=== PATIENT | female | born 1990 | race American Indian/Alaskan Native ===

== ENCOUNTER → 2017-01-17 | Outpatient (CLI) | payer MEDICAID ==
[~2017-01-17] MED LIST: BACLOFEN; DIAZEPAM PO; LIORESAL 1010 MG/TAB PO; VALIUM 5MG T5 MG/TAB PO; ZITHROMAX Z PA250 MG PO; phenobarbital PO
== END ==
LOC: COL.CARD 13:00
DX: G40.89 Other seizures (principal); G80.9 Cerebral palsy, unspecified; G83.0 Diplegia of upper limbs

== ENCOUNTER → 2017-12-25 | Outpatient (CLI) | payer MEDICARE, MEDICAID ==
[2017-12-25 12:07] LABS: MUCOUS Present /lpf; PH 5 (5-8); URINE APPEARANCE Hazy; URINE BACTERIA None Seen /hpf; URINE BILIRUBIN Negative (NEGATIVE); URINE BLOOD 1+ (NEGATIVE); URINE CALCIUM OXALATE CRYSTAL Present /hpf; URINE COLOR Yellow; URINE GLUCOSE Negative (NEGATIVE); URINE KETONE Negative (NEGATIVE); URINE LEUKOCYTE ESTERASE Negative (NEGATIVE); URINE NITRATE Negative (NEGATIVE); URINE PROTEIN(semi-quant) Negative (NEGATIVE); URINE RBC 20-50 /hpf; URINE UROBILINOGEN Negative (NEGATIVE)
[2017-12-25 13:06] LABS: COLLECTION METHOD CLEAN CATCH
== END ==
LOC: COL.LAB 11:24
PROVIDERS: Internal Medicine
DX: R31.9 Hematuria, unspecified (principal)

== ENCOUNTER → 2018-04-10 | Outpatient (REF) ==
[2018-04-10 09:25] LABS: MUCOUS Present /lpf; PH 6 (5-8); URINE APPEARANCE Turbid; URINE BACTERIA Rare /hpf; URINE BILIRUBIN Negative (NEGATIVE); URINE BLOOD 2+ (NEGATIVE); URINE CALCIUM OXALATE CRYSTAL Present /hpf; URINE COLOR Amber; URINE GLUCOSE Negative (NEGATIVE); URINE KETONE Negative (NEGATIVE); URINE LEUKOCYTE ESTERASE Trace (NEGATIVE); URINE NITRATE Negative (NEGATIVE); URINE PROTEIN(semi-quant) 2+ (NEGATIVE); URINE UROBILINOGEN Negative (NEGATIVE)
[2018-04-10 09:28] LABS: COLLECTION METHOD CLEAN CATCH
== END ==
LOC: ZLAB.STJ 09:15
PROVIDERS: Internal Medicine
DX: Z01.89 Encounter for other specified special examinations (principal)

== ENCOUNTER → 2018-08-28 | Outpatient (CLI) | payer MEDICAID | LOC: ZLAB.STJ 15:37 | DX: E87.5 Hyperkalemia (principal) ==

== ENCOUNTER → 2018-08-28 | Outpatient (CLI) | payer MEDICAID ==
[2018-08-28 11:45] LABS: BASO % 0.7 % (0.0-2.0); EOS # 0.1 (0.0-0.7); EOS % 1.5 % (0-4.0); GRAN # 1.7 (1.4-6.5); GRAN % 36.6 % (42.2-75.2); HEMATOCRIT 40.1 % (37.0-47.0); HEMOGLOBIN 12.7 g/dl (12.5-16.0); LYMPH # 2.4 (1.2-3.4); MEAN CELL VOLUME 95 fl (80.0-100.0); MEAN CORPUSCULAR HEMOGLOBIN 30 pg (27.0-31.0); MEAN CORPUSCULAR HGB CONC 32 g/dl (33.0-37.0); MEAN PLATELET VOLUME 10.7 fl (7.4-10.4); MONO # 0.4 (0.1-0.6); MONO % 9.2 % (1.7-9.3); PLATELET COUNT 221 K/mm3 (130-400); RED BLOOD COUNT 4.22 M/mm3 (4.10-5.30); REDCELL DISTRIBUTION WIDTH-CV 11.6 % (11.5-14.5)
[2018-08-28 12:12] LABS: BILIRUBIN,TOTAL 0.3 mg/dL (0.0-1.0); CALCIUM 9.5 mg/dL (8.4-10.2); CHOLESTEROL RISK RATIO 3.9; CREATININE, serum 0.69 mg/dL (0.52-1.25)
[2018-08-28 12:42] LABS: THYROID STIMULATING HORMONE 1.59 uIU/mL (0.465-4.680)
[2018-08-28 12:52] LABS: POTASSIUM 5.8 mmol/L (3.4-5.0)
== END ==
LOC: ZLAB.STJ 09:34
PROVIDERS: Internal Medicine
DX: G80.9 Cerebral palsy, unspecified (principal); E87.5 Hyperkalemia

== ENCOUNTER → 2018-09-11 | Outpatient (CLI) | payer MEDICAID ==
[2018-09-12 07:45] LABS: CALCIUM 9.9 mg/dL (8.4-10.2); CREATININE, serum 0.72 mg/dL (0.52-1.25)
[2018-09-12 07:50] LABS: POTASSIUM 5.9 mmol/L (3.4-5.0)
== END ==
LOC: ZLAB.STJ 10:22
PROVIDERS: Internal Medicine
DX: G80.9 Cerebral palsy, unspecified (principal)

== ENCOUNTER → 2018-09-16 | Outpatient (CLI) | payer MEDICAID ==
[2018-09-16 15:45] LABS: BASO % 0.6 % (0.0-2.0); EOS # 0.1 (0.0-0.7); EOS % 1.5 % (0-4.0); GRAN # 2.8 (1.4-6.5); GRAN % 51.3 % (42.2-75.2); HEMATOCRIT 39.2 % (37.0-47.0); HEMOGLOBIN 12.7 g/dl (12.5-16.0); LYMPH % 37.2 % (20.0-51.0); MEAN CELL VOLUME 93 fl (80.0-100.0); MEAN CORPUSCULAR HEMOGLOBIN 30 pg (27.0-31.0); MEAN CORPUSCULAR HGB CONC 32 g/dl (33.0-37.0); MEAN PLATELET VOLUME 11.4 fl (7.4-10.4); MONO # 0.5 (0.1-0.6); MONO % 9.2 % (1.7-9.3); PLATELET COUNT 212 K/mm3 (130-400); RED BLOOD COUNT 4.24 M/mm3 (4.10-5.30); REDCELL DISTRIBUTION WIDTH-CV 11.5 % (11.5-14.5)
[2018-09-16 15:55] LABS: ALBUMIN 4.1 gm/dL (3.5-5.0); BILIRUBIN,TOTAL 0.3 mg/dL (0.0-1.0); CALCIUM 9.6 mg/dL (8.4-10.2); CREATININE, serum 0.74 mg/dL (0.52-1.25); POTASSIUM 4.9 mmol/L (3.4-5.0); TOTAL PROTEIN 7.3 gm/dL (6.4-8.2)
[2018-09-16 16:13] LABS: VALPROIC ACID (DEPAKENE) 37.4 ug/mL (50.0-100.0)
== END ==
LOC: ZLAB.STJ 15:11
PROVIDERS: Psychiatry & Neurology Neurology
DX: G40.309 Generalized idiopathic epilepsy and epileptic syndromes, not intractable, without status epilepticus (principal)

== ENCOUNTER 2018-12-15 22:57 | Emergency (ER) | payer MEDICARE, MEDICAID ==
[~2018-12-15] VITALS: Ht 167.6 cm; Wt 59.1 kg
[2018-12-15 23:04] VITALS: TEMP 98.4
[2018-12-15] MEDS ORDERED: VITAMINS CHILDR1 CT1 PO (23:16)
[2018-12-15] MEDS ORDERED: PROAIR HFA0.09 MG/AC IH (23:17)
[2018-12-15] MEDS ORDERED: COLACE 100100 MG/CAP PO (23:17)
[2018-12-16 00:18] LABS: BASO % 0.6 % (0.0-2.0); EOS # 0.2 (0.0-0.7); EOS % 3.6 % (0-4.0); GRAN % 41.3 % (42.2-75.2); HEMOGLOBIN 11.8 g/dl (12.5-16.0); LYMPH # 2.2 (1.2-3.4); LYMPH % 45.9 % (20.0-51.0); MEAN CELL VOLUME 94 fl (80.0-100.0); MEAN CORPUSCULAR HEMOGLOBIN 31 pg (27.0-31.0); MEAN CORPUSCULAR HGB CONC 33 g/dl (33.0-37.0); MEAN PLATELET VOLUME 11.2 fl (7.4-10.4); MONO # 0.4 (0.1-0.6); MONO % 8.4 % (1.7-9.3); PLATELET COUNT 146 K/mm3 (130-400); RED BLOOD COUNT 3.84 M/mm3 (4.10-5.30); REDCELL DISTRIBUTION WIDTH-CV 12.9 % (11.5-14.5)
[2018-12-16 00:21] LABS: HEMATOCRIT 36.2 % (37.0-47.0)
[2018-12-16 00:29] LABS: ALBUMIN 3.7 gm/dL (3.5-5.0); BILIRUBIN,TOTAL 0.3 mg/dL (0.0-1.0); CALCIUM 9.5 mg/dL (8.4-10.2); CREATININE, serum 0.74 (0.52-1.25); POTASSIUM 4.7 mmol/L (3.4-5.0); TOTAL PROTEIN 6.9 gm/dL (6.4-8.2)
[2018-12-16 04:27] VITALS: BP 105/79; PULSE 76
== END 2018-12-16 04:27 | disposition home or self-care (01) ==
LOC: COL.ER 22:57
PROVIDERS: Physician Assistant
DX: S00.93XA Contusion of unspecified part of head, initial encounter (principal); S10.93XA Contusion of unspecified part of neck, initial encounter; W06.XXXA Fall from bed, initial encounter; Y92.129 Unspecified place in nursing home as the place of occurrence of the external cause
CPT/HCPCS: J2250

== ENCOUNTER 2019-01-17 18:08 | Emergency (ER) | payer MEDICAID ==
[2019-01-17 18:21] VITALS: TEMP 97.8
[2019-01-17 19:07] LABS: BASO % 0.5 % (0.0-2.0); EOS % 0.4 % (0-4.0); GRAN # 2.4 (1.4-6.5); GRAN % 43.3 % (42.2-75.2); HEMATOCRIT 39.3 % (37.0-47.0); HEMOGLOBIN 12.6 g/dl (12.5-16.0); LYMPH # 2.4 (1.2-3.4); LYMPH % 43.3 % (20.0-51.0); MEAN CELL VOLUME 95 fl (80.0-100.0); MEAN CORPUSCULAR HEMOGLOBIN 30 pg (27.0-31.0); MEAN CORPUSCULAR HGB CONC 32 g/dl (33.0-37.0); MEAN PLATELET VOLUME 11.5 fl (7.4-10.4); MONO # 0.7 (0.1-0.6); MONO % 12.1 % (1.7-9.3); RED BLOOD COUNT 4.14 M/mm3 (4.10-5.30); REDCELL DISTRIBUTION WIDTH-CV 13.7 % (11.5-14.5); RETIC # 0.07 M/mm3 (0.02-0.16); RETIC % 1.8 % (0.5-3.52)
[2019-01-17 19:11] LABS: PLATELET COUNT 130 K/mm3 (130-400)
[2019-01-17 19:45] LABS: ERYTHROCYTE SEDIMENTATION RATE 1 mm/hr (0-20)
[2019-01-17 19:50] LABS: ALBUMIN 3.7 gm/dL (3.5-5.0); BILIRUBIN,TOTAL 0.7 mg/dL (0.0-1.0); CALCIUM 9.5 mg/dL (8.4-10.2); CREATININE, serum 0.89 (0.52-1.25); TOTAL PROTEIN 7.1 gm/dL (6.4-8.2)
[2019-01-17 20:45] VITALS: BP 121/68; PULSE 92
== END 2019-01-17 20:50 | disposition home or self-care (01) ==
LOC: COL.ER 18:08
PROVIDERS: Family Medicine
DX: G83.9 Paralytic syndrome, unspecified (principal)

== ENCOUNTER → 2019-01-17 | Outpatient (CLI) | payer MEDICAID ==
[~2019-01-17] MED LIST changes: +COLACE 100100 MG/CAP PO; +PROAIR HFA0.09 MG/AC IH; +VITAMINS CHILDR1 CT1 PO
[2019-01-17 16:58] LABS: HEMATOCRIT 41.9 % (37.0-47.0); HEMOGLOBIN 13.7 g/dl (12.5-16.0); MEAN CELL VOLUME 93 fl (80.0-100.0); MEAN CORPUSCULAR HEMOGLOBIN 30 pg (27.0-31.0); MEAN CORPUSCULAR HGB CONC 33 g/dl (33.0-37.0); REDCELL DISTRIBUTION WIDTH-CV 13.6 % (11.5-14.5)
[2019-01-17 17:11] LABS: ALBUMIN 3.7 gm/dL (3.5-5.0); BILIRUBIN,TOTAL 0.9 mg/dL (0.0-1.0); CALCIUM 9.2 mg/dL (8.4-10.2); CREATININE, serum 0.81 (0.52-1.25); POTASSIUM 5.3 mmol/L (3.4-5.0); TOTAL PROTEIN 7.3 gm/dL (6.4-8.2)
[2019-01-17 17:23] LABS: VALPROIC ACID (DEPAKENE) 72.1 ug/mL (50.0-100.0)
[2019-01-17 17:33] LABS: PLATELET COUNT 1 K/mm3 (130-400)
[2019-01-17 17:47] LABS: LYMPHOCYTE 67 % (20.0-51.0); NEUTROPHILS 22 % (42.0-75.2); PLATELET ESTIMATE DECREASED (NORMAL)
== END ==
LOC: COL.LAB 16:32
PROVIDERS: Internal Medicine
DX: G40.309 Generalized idiopathic epilepsy and epileptic syndromes, not intractable, without status epilepticus (principal); D69.6 Thrombocytopenia, unspecified; R74.8 Abnormal levels of other serum enzymes

== ENCOUNTER → 2019-01-18 | Outpatient (CLI) | payer MEDICAID ==
[2019-01-18 15:59] LABS: BASO % 0.6 % (0.0-2.0); EOS % 0.8 % (0-4.0); GRAN # 2.1 (1.4-6.5); GRAN % 39.3 % (42.2-75.2); HEMATOCRIT 37.6 % (37.0-47.0); LYMPH # 2.3 (1.2-3.4); LYMPH % 43.5 % (20.0-51.0); MEAN CELL VOLUME 95 fl (80.0-100.0); MEAN CORPUSCULAR HEMOGLOBIN 30 pg (27.0-31.0); MEAN CORPUSCULAR HGB CONC 32 g/dl (33.0-37.0); MEAN PLATELET VOLUME 11.2 fl (7.4-10.4); MONO # 0.8 (0.1-0.6); MONO % 15.4 % (1.7-9.3); PLATELET COUNT 115 K/mm3 (130-400); RED BLOOD COUNT 3.96 M/mm3 (4.10-5.30); REDCELL DISTRIBUTION WIDTH-CV 13.3 % (11.5-14.5)
== END ==
LOC: COL.LAB 15:13
PROVIDERS: Internal Medicine
DX: D69.6 Thrombocytopenia, unspecified (principal)

== ENCOUNTER → 2019-02-05 | Outpatient (CLI) | payer MEDICAID | LOC: COL.CARD 12:52 | DX: G40.909 Epilepsy, unspecified, not intractable, without status epilepticus (principal) ==

== ENCOUNTER 2019-04-30 20:54 | Emergency (ER) | payer MEDICAID ==
[2019-04-30 21:03] VITALS: BP 101/86
[2019-04-30] MEDS ORDERED: DEPAKOTE ER 50500 MG PO (21:25)
[2019-04-30] MEDS ORDERED: COLACE 100100 MG/CAP PO (21:29)
[2019-04-30] MEDS ORDERED: MAGNESIUM ELEM300 MG PO (21:31)
[2019-04-30] MEDS ORDERED: MOTRIN 200200 MG/TAB PO (21:31)
[2019-04-30] MEDS ORDERED: TYLENOL 325MG325 MG PO (21:31)
[2019-04-30 22:01] LABS: BASO % 0.7 % (0.0-2.0); EOS # 0.2 (0.0-0.7); EOS % 4.1 % (0-4.0); GRAN # 2.1 (1.4-6.5); GRAN % 39.3 % (42.2-75.2); HEMATOCRIT 41.4 % (37.0-47.0); HEMOGLOBIN 13.3 g/dl (12.5-16.0); LYMPH # 2.3 (1.2-3.4); LYMPH % 41.9 % (20.0-51.0); MEAN CELL VOLUME 101 fl (80.0-100.0); MEAN CORPUSCULAR HEMOGLOBIN 32 pg (27.0-31.0); MEAN CORPUSCULAR HGB CONC 32 g/dl (33.0-37.0); MEAN PLATELET VOLUME 11.3 fl (7.4-10.4); MONO # 0.7 (0.1-0.6); MONO % 13.6 % (1.7-9.3); PLATELET COUNT 115 K/mm3 (130-400); RED BLOOD COUNT 4.12 M/mm3 (4.10-5.30)
[2019-04-30 22:17] LABS: ALANINE AMINOTRANSFERASE 21 U/L (9-52); ALBUMIN 3.9 gm/dL (3.5-5.0); ALKALINE PHOSPHATASE 133 U/L (50-136); ANION GAP 8 mmol/L (7-16); AST,SGOT 46 U/L (15-37); BILIRUBIN,TOTAL 0.3 mg/dL (0.0-1.0); BLOOD UREA NITROGEN 25 mg/dL (7-17); C-REACTIVE PROTEIN < 0.5 mg/dL (0.0-0.9); CALCIUM 9.4 mg/dL (8.4-10.2); CARBON DIOXIDE 31 mmol/L (22-30); CHLORIDE 101 mmol/L (98-107); CREATININE, serum 0.89 (0.52-1.25); GLUCOSE 105 mg/dL (74-106); LIPASE 172 U/L (23-300); POTASSIUM 5.7 mmol/L (3.4-5.0); SODIUM 139 mmol/L (137-145); TOTAL PROTEIN 7.3 gm/dL (6.4-8.2)
[2019-04-30 23:15] LABS: COLLECTION METHOD CATHETER
[2019-04-30 23:26] LABS: MUCOUS Present /lpf; PH 7 (5-8); SQUAMOUS EPITHELIAL 0-2 /hpf; URINE APPEARANCE Clear; URINE BACTERIA None Seen /hpf; URINE BILIRUBIN Negative (NEGATIVE); URINE BLOOD Negative (NEGATIVE); URINE COLOR Yellow; URINE GLUCOSE Negative (NEGATIVE); URINE KETONE Negative (NEGATIVE); URINE LEUKOCYTE ESTERASE Negative (NEGATIVE); URINE NITRATE Negative (NEGATIVE); URINE PROTEIN(semi-quant) Negative (NEGATIVE); URINE RBC 0-2 /hpf; URINE UROBILINOGEN Negative (NEGATIVE)
[2019-04-30 23:30] VITALS: PULSE 94; TEMP 97.4
== END 2019-04-30 23:55 | disposition home or self-care (01) ==
LOC: COL.ER 20:54
PROVIDERS: Emergency Medicine
DX: R19.7 Diarrhea, unspecified (principal); E87.5 Hyperkalemia; G40.909 Epilepsy, unspecified, not intractable, without status epilepticus
CPT/HCPCS: J7030

== ENCOUNTER 2019-06-02 13:00 | Outpatient (RCR) | payer MEDICAID ==
[~2019-06-02 13:00] MED LIST changes: +DEPAKOTE ER 50500 MG PO; +MAGNESIUM ELEM300 MG PO; +MOTRIN 200200 MG/TAB PO; +TYLENOL 325MG325 MG PO
== END 2019-07-01 | disposition home or self-care (01) ==
LOC: WSST
DX: G80.9 Cerebral palsy, unspecified (principal)

== ENCOUNTER 2019-09-01 09:05 | Inpatient (IN) | payer MEDICARE, MEDICAID ==
[~2019-09-01] VITALS: Ht 160 cm; Wt 43.0 kg
[~2019-09-01 09:05] MED LIST changes: -DEPAKOTE ER 50500 MG PO; +DEPAKOTE500 MG PO; -TYLENOL 325MG325 MG PO; +TYLENOL 500MG500 MG PO
[2019-09-01 10:28] LABS: BASO % 0.3 % (0.0-2.0); GRAN # 8.3 (1.4-6.5); GRAN % 83.7 % (42.2-75.2); HEMATOCRIT 37.9 % (37.0-47.0); HEMOGLOBIN 12.2 g/dl (12.5-16.0); LYMPH # 0.5 (1.2-3.4); LYMPH % 5.3 % (20.0-51.0); MEAN CELL VOLUME 100 fl (80.0-100.0); MEAN CORPUSCULAR HEMOGLOBIN 32 pg (27.0-31.0); MEAN CORPUSCULAR HGB CONC 32 g/dl (33.0-37.0); MEAN PLATELET VOLUME 11.1 fl (7.4-10.4); MONO % 10.3 % (1.7-9.3); PLATELET COUNT 111 K/mm3 (130-400)
[2019-09-01 10:35] LABS: ALBUMIN 3.6 gm/dL (3.5-5.0); BILIRUBIN,TOTAL 0.4 mg/dL (0.0-1.0); CALCIUM 8.9 mg/dL (8.4-10.2); CREATININE, serum 1.13 (0.52-1.25); POTASSIUM 4.2 mmol/L (3.4-5.0); TOTAL PROTEIN 7.1 gm/dL (6.4-8.2)
[2019-09-01] MEDS ORDERED: ALBUTEROL0.83 MG/ML IH (10:53)
[2019-09-01] MEDS ORDERED: MAXALT5 MG PO (10:54)
[2019-09-01 14:34] LABS: COLLECTION METHOD CLEAN CATCH
[2019-09-01 14:47] LABS: MUCOUS Present /lpf; PH 5 (5-8); SQUAMOUS EPITHELIAL 0-2 /hpf; URINE APPEARANCE Hazy; URINE BACTERIA Rare /hpf; URINE BILIRUBIN Negative (NEGATIVE); URINE BLOOD Negative (NEGATIVE); URINE COLOR Amber; URINE GLUCOSE Negative (NEGATIVE); URINE KETONE Trace (NEGATIVE); URINE LEUKOCYTE ESTERASE Negative (NEGATIVE); URINE NITRATE Negative (NEGATIVE); URINE PROTEIN(semi-quant) 1+ (NEGATIVE); URINE RBC 0-2 /hpf; URINE UROBILINOGEN Negative (NEGATIVE)
[2019-09-01 16:51] LABS: MONOSCREEN NEGATIVE
[2019-09-01 17:50] LABS: INR 1.4 (0.8-3.0); PROTHROMBIN TIME 16.6 SECONDS (9.7-12.8)
--- NOTE | 2019-09-01 18:50 | NUR ---
REPORT RECEIVED FROM GURJIT MONTESINOS. PT ARRIVED TO ICU BED 6 FROM ER VIA PT'S OWN WHEELCHAIR. PT IS IN DROPLET ISOLATION D/T +INFLUENZA. PT'S MOM IN ROOM. PT NONVERBAL. ANSWERS YES/NO QUESTIONS BY TOUCHING NOSE (YES) OR EAR (NO). PT MOVES UPPER EXTREMITIES AROUND, NOT ABLE TO FOLLOW COMMANDS. PT CONNECTED TO HEART MONITOR. VITAL SIGNS STABLE. DR MARQUEZ IN ROOM TALKING WITH PT'S MOM. DISCUSSED PICC PLACEMENT FOR TOMORROW WITH HER. PT'S MOM VERBALIZED UNDERSTANDING.
[2019-09-01 19:00] VITALS: BP 100/82; PULSE 94; TEMP 98
--- NOTE | 2019-09-01 19:30 | NUR ---
REPORT GIVEN TO GURJIT HERBERT.
[2019-09-02] VITALS (7 sets, daily range): BP systolic 93–123; BP diastolic 50–71; PULSE 64–93; TEMP 97.6–98.5
--- NOTE | 2019-09-02 06:58 | NUR ---
VBG was ordered and not conducted due to lab was unable to extract the blood. EKG ordered but not conducted due to the patients uncontrolled extremity movements due to her cerebral palsy. ABG was ordered but not conducted due to the patients uncontrolled extremity movements due to her cerebral palsy.
[2019-09-02 07:16] LABS: BASO % 0.1 % (0.0-2.0); GRAN % 85.3 % (42.2-75.2); HEMOGLOBIN 11.3 g/dl (12.5-16.0); LYMPH # 0.7 (1.2-3.4); LYMPH % 10.5 % (20.0-51.0); MEAN CELL VOLUME 103 fl (80.0-100.0); MEAN CORPUSCULAR HEMOGLOBIN 32 pg (27.0-31.0); MEAN CORPUSCULAR HGB CONC 32 g/dl (33.0-37.0); MEAN PLATELET VOLUME 11.2 fl (7.4-10.4); MONO # 0.3 (0.1-0.6); MONO % 3.8 % (1.7-9.3); PLATELET COUNT 83 K/mm3 (130-400); RED BLOOD COUNT 3.49 M/mm3 (4.10-5.30); REDCELL DISTRIBUTION WIDTH-CV 12.8 % (11.5-14.5)
[2019-09-02 07:20] LABS: HEMATOCRIT 35.8 % (37.0-47.0)
[2019-09-02 07:28] LABS: ALANINE AMINOTRANSFERASE 158 U/L (9-52); ALBUMIN 2.8 gm/dL (3.5-5.0); ALKALINE PHOSPHATASE 67 U/L (50-136); ANION GAP 5 mmol/L (7-16); AST,SGOT 159 U/L (15-37); BILIRUBIN,TOTAL 0.2 mg/dL (0.0-1.0); BLOOD UREA NITROGEN 14 mg/dL (7-17); CALCIUM 8.1 mg/dL (8.4-10.2); CARBON DIOXIDE 26 mmol/L (22-30); CHLORIDE 112 mmol/L (98-107); CREATININE, serum 0.62 (0.52-1.25); GLUCOSE 103 mg/dL (74-106); POTASSIUM 4.7 mmol/L (3.4-5.0); SODIUM 143 mmol/L (137-145); TOTAL PROTEIN 5.6 gm/dL (6.4-8.2)
[2019-09-02 07:39] LABS: TROPONIN-I < 0.012 ng/mL (0.000-0.035)
[2019-09-02 07:51] LABS: INR 1.2 (0.8-3.0); PROTHROMBIN TIME 14.2 SECONDS (9.7-12.8)
--- NOTE | 2019-09-02 11:15 | NUR ---
Dr. Malagon rounds at this time. Orders as entered CPOE.
--- NOTE | 2019-09-02 15:34 | NUR ---
POWER DIGGER OPERATOR student met with the patient's mother, Maryann to complete initial assessment. The patient is nonverbal and is unable to complete assessment and is wheelchair bound. The patient lives in a skilled nursing managed by [facility] in [place]. The patient receives assistance with all ADLs. The patient's PCP is Dr. Hamm and patient receives medications [facility]. Maryann reports the residential tech for the patient is Raina . POWER DIGGER OPERATOR student attempted to contact Raina, left message. The patient will return to [facility] at discharge. coordinator of library services will continue to follow.
--- NOTE | 2019-09-02 19:05 | NUR ---
RECEIVED REPORT FROM GURJIT MEYER. PT SITTING UP IN WC EATING DINNER. MOM AT BEDSIDE ASSISTING PT. NO ACUTE S/S OF DISTRESS NOTED. PT AND MOM MADE AWARE OF TRANSFER TO THE FLOOR KATHERYN MOM STATES UNDERSTANDING.
--- NOTE | 2019-09-02 20:15 | NUR ---
REPORT CALLED TO GURJIT HENLEY. PT TRASNFERRED TO ROOM 353 WITH ALL PERSONAL BELONGINGS AND MOM AT BEDSIDE. TRANSFERRED BY WC WITH CARROTING MACHINE OFFBEARER. NO ACUTE S/S OF DISTRESS. MASK PLACED ON PT FOR TRANSFER.
--- NOTE | 2019-09-02 20:30 | NUR ---
Patient arrived to medical floor from ICU at approximately 2014. Assisted from wheelchair to bed with two assist. Repositioned in bed. Assessment completed at this time. Alert and oriented to self. Mom at bedside, who assists with communication due to patient being non-verbal. Occasional cough. LS fine crackles upper lobes, diminished lower lobes. Respirations even and unlabored. Double lumen PICC to RUE. NS runing per orders. HRR. Capillayr refill less than 3 seconds. Non-tenting skin turgor. BSAx4. 1+ edema to bilateral feet. Voices no questions, needs, or concerns at this time. Resting in bed with call light within reach.
--- NOTE | 2019-09-03 00:43 | NUR ---
Patient assisted to bathroom with two assist and using home stool. Able to urinate. No BM at this time. Assisted back into bed and repositioned onto left side.
[2019-09-03 04:00] VITALS: BP 94/55; PULSE 67; TEMP 98.2
--- NOTE | 2019-09-03 06:44 | NUR ---
Patient was incontinent of bladder. Assisted to bathroom and perineal hygiene care provided. Assisted back to bed after bed change. Resting in bed with call light within reach.
[2019-09-03 07:35] LABS: BASO % 0.2 % (0.0-2.0); GRAN # 4.1 (1.4-6.5); GRAN % 68.8 % (42.2-75.2); INR 1.1 (0.8-3.0); LYMPH # 1.5 (1.2-3.4); LYMPH % 25.5 % (20.0-51.0); MEAN CELL VOLUME 102 fl (80.0-100.0); MEAN CORPUSCULAR HGB CONC 32 g/dl (33.0-37.0); MEAN PLATELET VOLUME 11.4 fl (7.4-10.4); MONO # 0.3 (0.1-0.6); MONO % 5.5 % (1.7-9.3); PLATELET COUNT 64 K/mm3 (130-400); PROTHROMBIN TIME 12.5 SECONDS (9.7-12.8); RED BLOOD COUNT 2.98 M/mm3 (4.10-5.30); REDCELL DISTRIBUTION WIDTH-CV 12.9 % (11.5-14.5)
[2019-09-03 07:38] LABS: HEMATOCRIT 30.3 % (37.0-47.0); HEMOGLOBIN 9.6 g/dl (12.5-16.0); MEAN CORPUSCULAR HEMOGLOBIN 32 pg (27.0-31.0)
[2019-09-03 07:46] LABS: ALBUMIN 2.2 gm/dL (3.5-5.0); BILIRUBIN,TOTAL 0.2 mg/dL (0.0-1.0); CALCIUM 7.5 mg/dL (8.4-10.2); CREATININE, serum 0.61 (0.52-1.25); POTASSIUM 3.3 mmol/L (3.4-5.0); TOTAL PROTEIN 4.7 gm/dL (6.4-8.2)
[2019-09-03 08:29] VITALS: BP 91/63; PULSE 92; TEMP 98.8
[2019-09-03 11:57] VITALS: BP 118/76; PULSE 98; TEMP 97.2
--- NOTE | 2019-09-03 13:05 | NUR ---
The patient is to tentatively be able to discharge tomorrow, 09/04. JARRETT contacted and updated Raina, Light Bulb Assembler at [facility]. Raina reports that they would be able to provide transportation for the patient and could be here at 1300, if ready. JARRETT notified nurse practitioner, Linda. JARRETT to continue to follow.
[2019-09-03] MEDS ORDERED: VALIUM 2MG T2 MG/TAB PO (14:02)
--- NOTE | 2019-09-03 16:00 | NUR ---
PT HAD A COUPLE OF LG INCONT LOOSE STOOLS THIS SHIFT. MOM GAVE SHOWER DUE TO THE INCONTINANCE. MOM HAD C/O PT BEING MORE "SPASTIC" TODAY. THIS NURSE WENT OVER PT HOME MED REQ THIS SHIFT, AND EDITTED THE ERRORS, OKAYED WITH PROVIDER TO RESTART THEM SHE TAKES AT HOME. IN HOPES THAT CORRECTED MED REGIMINE WITH HELP PT NOT TO BE SO SPASTIC. REPLACED KCL PER ORDERS THIS SHIFT DUE TO LEVEL OF 3.3. IV MEDS AND FLUID DC'D TODAY. MOM STATED TO THIS NURSE THAT SHE NOTICED A SMALL AMOUNT OF BLOOD WHEN SHE WIPPED PT FROM LOOSE STOOL, THIS NURSE DID VISUAL EXAM AND DIDNT SEE ANY BLEEDING, DID REPORT TO AILEEN DEAN, AND I DISCUSSED WITH MOM THAT I PASSED IT ON, AND THAT IT COULD BE FROM WIPING ALOT FORM LOOSE STOOLS AND AREA COULD BE RAW. NO MORE ISSUES NOTED AFTERWARDS.
[2019-09-03 16:36] LABS: HEMOGLOBIN 10.5 g/dl (12.5-16.0); MEAN CELL VOLUME 102 fl (80.0-100.0); MEAN CORPUSCULAR HEMOGLOBIN 33 pg (27.0-31.0); MEAN CORPUSCULAR HGB CONC 32 g/dl (33.0-37.0); PLATELET COUNT 70 K/mm3 (130-400); RED BLOOD COUNT 3.21 M/mm3 (4.10-5.30)
[2019-09-03 16:37] LABS: HEMATOCRIT 32.8 % (37.0-47.0)
[2019-09-03 17:03] VITALS: PULSE 96
[2019-09-03 21:48] VITALS: BP 105/85; PULSE 82; TEMP 97.2
--- NOTE | 2019-09-03 22:57 | NUR ---
This consumer loan underwriter performed meet/greet with Pt and Mother at shift change. Pt sitting up in her wheelchair watching tv. Pt assisted to bed and repositioned to make comfortable. Pt is non verbal and communicates yes/no by touching her nose for yes and her ear for no. Per Faces Scale Pt does not appear to have any pain or discomfort at shift change. At this time Pt is resting peacefully in bed with eyes closed and no s/s of distress noted. Will continue to monitor.
[2019-09-04 00:57] VITALS: BP 110/87; PULSE 73; TEMP 98.6
--- NOTE | 2019-09-04 05:53 | NUR ---
Pt has remained in bed with eyes closed resting peacefully. Pt's mother has returned and is at bedside. Pt presents with no s/s of distress and no s/s of pain or discomfort. Will continue to monitor.
[2019-09-04 05:59] VITALS: BP 114/70; PULSE 126; PULSE 132; TEMP 101.9; TEMP 103.9
[2019-09-04 06:47] LABS: BASO % 0.4 % (0.0-2.0); GRAN # 1.1 (1.4-6.5); GRAN % 43.1 % (42.2-75.2); HEMOGLOBIN 11.1 g/dl (12.5-16.0); LYMPH # 1.2 (1.2-3.4); LYMPH % 45.8 % (20.0-51.0); MEAN CELL VOLUME 101 fl (80.0-100.0); MEAN CORPUSCULAR HEMOGLOBIN 33 pg (27.0-31.0); MEAN CORPUSCULAR HGB CONC 33 g/dl (33.0-37.0); MEAN PLATELET VOLUME 11.6 fl (7.4-10.4); MONO # 0.3 (0.1-0.6); MONO % 10.3 % (1.7-9.3); PLATELET COUNT 74 K/mm3 (130-400); RED BLOOD COUNT 3.37 M/mm3 (4.10-5.30); REDCELL DISTRIBUTION WIDTH-CV 13.1 % (11.5-14.5)
--- NOTE | 2019-09-04 06:47 | NUR ---
PCT stated that patient's temp was 103.9, and HR was 120s. Patient assessed. Rechecked temperature with a result of 101.9. HR was upper 120s to low 130s. Called to Dr. Luong. Notified that APAP is being given at this time, but wanted to notify MD of HR. Asked if he wanted an EKG, and declined at this time. Patient assisted up to the bathroom, then back in bed. Perineal hygiene care provided. Mom remains at bedside at this time.
[2019-09-04 06:48] LABS: HEMATOCRIT 34.1 % (37.0-47.0)
[2019-09-04 06:56] LABS: PROTHROMBIN TIME 11.2 SECONDS (9.7-12.8)
[2019-09-04 07:02] LABS: ALBUMIN 2.8 gm/dL (3.5-5.0); BILIRUBIN,TOTAL 0.2 mg/dL (0.0-1.0); CALCIUM 8.7 mg/dL (8.4-10.2); CREATININE, serum 0.74 (0.52-1.25); POTASSIUM 4.3 mmol/L (3.4-5.0); TOTAL PROTEIN 5.7 gm/dL (6.4-8.2)
--- NOTE | 2019-09-04 08:00 | NUR ---
Pt assessment completed and charted. Morning medications administered per MAR. Medications administered per moms assistance. pt takes pills whole with liquid. Discussed with mom of option taking w/ applesauce. Pt has JCARLOS PICC, both ports flush well w/ good blood return. Pt LS cta, breathing is even and unlabored. HR tachy, fever this morning, given tylenol per overnight associate. Temp rechecked about hour later, 100.1. Hospitalist rounding on pt. Difficult to communicate with patient, mom assists in communication. ekg ordered for patient d/t elevated HR. IVF infusing at 75 ml/hr. No other concerns at this time.
[2019-09-04 09:11] VITALS: BP 128/71; PULSE 147; TEMP 100.1
--- NOTE | 2019-09-04 09:56 | NUR ---
The patient spiked a fever this morning. The patient is not yet ready to discharge. JARRETT notified Raina, Heel Slicker at [facility]. Raina reports that they are able to provide transportation on the weekend, if ready to discharge then. SW to continue to follow.
--- NOTE | 2019-09-04 10:00 | NUR ---
PICC intact right upper arm with sterile technique right upper arm PICC dressing change done with insertion site cleansed with ChloraPrep 1, chlorhexidine impregnated disc applied, skin prep, StatLock, and Tegaderm applied. Arm wrapped with Alberto to protect catheter. No signs or symptoms of IV complications noted.
[2019-09-04 12:35] VITALS: BP 105/54; PULSE 116; TEMP 98.6
--- NOTE | 2019-09-04 13:00 | NUR ---
Pt temp has decreased to 98.6, HR slightly elevated but improved. Asssisted to bathroom with help of mom and this nurse. Mom concerned about area toward coccyx being swollen. This nurse assessed, pt doesnt appear to have swollen area, nor is it red or irritated. Will continue to monitor. Pt assisted back to personal WC, watching tv. JCARLOS PICC dressing changed per KARIS Gabriel. NS bolus given per orders. No other concerns at this time.
[2019-09-04 16:44] VITALS: BP 124/65; PULSE 115; TEMP 98.6
--- NOTE | 2019-09-04 18:17 | NUR ---
Pt sleeping in bed at this time. Pt IVF running at 75ml/hr to JCARLOS PICC w/o complications. Meds administered per MAR w/ applesauce. Pt tolerated ok. Pt became agitated. Mom unable to determine why, this nurse unsure why. Valium and baclofen administered. Pt now sleeping in bed. Doesn't appear to be in distress at this time.
[2019-09-04 21:09] VITALS: BP 129/84; PULSE 113; TEMP 98.1
--- NOTE | 2019-09-05 02:13 | NUR ---
Report received at shift change and meet and greet in room performed with mother and Pt. Pt mother reported during shift change that Pt needed to use restroom and this medical underwriter assisted Pt to toilet where she voided. Pt is non verbal and communicates using yes/no responses by touching her ear for no and her nose for yes. Pt requires total care and assistance for all activities and wants/needs. Pt mother remained at bedside for half of the shift and then left for awhile. At shift change Pt indicated that she wanted to remain sitting up in her wheelchair watching tv and was assisted to bed when she was ready to lie down as indicated by her response to questions about getting in bed. Pt has fluids running per her picc line with no s/s of distress noted. Pt has remained free of pain during the shift. Will continue to monitor.
--- NOTE | 2019-09-05 02:31 | NUR ---
Pt resting peacefully in bed with eyes closed, iv fluids running without complications, and mother at bedside.
--- NOTE | 2019-09-05 05:52 | NUR ---
Pt resting peacefully in bed with eyes closed and no s/s of distress noted. Pt mother states that Pt has no wants/needs at this time.
[2019-09-05 06:01] VITALS: BP 124/74; PULSE 107; TEMP 98
[2019-09-05 08:36] VITALS: BP 124/68; PULSE 154; TEMP 101.5
[2019-09-05 09:02] LABS: BASO % 0.2 % (0.0-2.0); GRAN # 3.9 (1.4-6.5); GRAN % 67.6 % (42.2-75.2); LYMPH # 1.2 (1.2-3.4); LYMPH % 20.1 % (20.0-51.0); MEAN CELL VOLUME 99 fl (80.0-100.0); MEAN CORPUSCULAR HEMOGLOBIN 32 pg (27.0-31.0); MEAN CORPUSCULAR HGB CONC 32 g/dl (33.0-37.0); MEAN PLATELET VOLUME 11.6 fl (7.4-10.4); MONO # 0.7 (0.1-0.6); MONO % 11.8 % (1.7-9.3); PLATELET COUNT 66 K/mm3 (130-400); RED BLOOD COUNT 3.15 M/mm3 (4.10-5.30); REDCELL DISTRIBUTION WIDTH-CV 13.1 % (11.5-14.5)
[2019-09-05 09:03] LABS: HEMATOCRIT 31.3 % (37.0-47.0)
[2019-09-05 09:15] LABS: CALCIUM 8.4 mg/dL (8.4-10.2); CREATININE, serum 0.73 (0.52-1.25); POTASSIUM 4.4 mmol/L (3.4-5.0)
--- NOTE | 2019-09-05 10:00 | NUR ---
This am patient was assisted to personal rolling commode by mother. Did offer assistance and she declined. Was observed being very spastic which mother said was more than usual. After the toilet, mother administered medications 2-3 at a time, held her chin and poured water into her mouth. She did sound as if she was having trouble swallowing. Did offer crusing or applesacue and mother declined. After taking medications patient was returned to bed. Her mother felt her spasms were worsening and that her facial expression was indicating she was having a seizure. Patient did have temperature prior to getting out of the restroom. She was administered prn ativan as ordered. Mother did become anxious about patient's condition. Providers were notified and orders were placed. They did round on patient with mother at the bedside. After episode and medication patient had improved. Was assisted to wheelchair by mother.
--- NOTE | 2019-09-05 10:48 | NUR ---
JARRETT attended clinical rounds. The patient had a fever of 101.5 again this morning. The patient is to be switched back to a broad spectrum antibiotic. JARRETT contacted and faxed updates to Raina at [facility]. . JARRETT to continue to follow.
[2019-09-05 12:47] VITALS: BP 145/89; PULSE 109; TEMP 98.3
--- NOTE | 2019-09-05 13:04 | NUR ---
per mother request, she would like patient to be unhooked from the IV to take her to the restroom. mother has been educated about the purpose of the fluids. Mother has been educated about letting staff know when patient is done in the restroom so she can be hooked back up to the IV.
[2019-09-05 13:23] LABS: COLLECTION METHOD CLEAN CATCH
[2019-09-05 13:35] LABS: PH 7 (5-8); SQUAMOUS EPITHELIAL 0-2 /hpf; URINE APPEARANCE Clear; URINE BACTERIA None Seen /hpf; URINE BILIRUBIN Negative (NEGATIVE); URINE BLOOD 2+ (NEGATIVE); URINE COLOR Yellow; URINE GLUCOSE Negative (NEGATIVE); URINE KETONE Negative (NEGATIVE); URINE LEUKOCYTE ESTERASE Negative (NEGATIVE); URINE NITRATE Negative (NEGATIVE); URINE PROTEIN(semi-quant) Negative (NEGATIVE); URINE UROBILINOGEN Negative (NEGATIVE)
[2019-09-05 16:41] VITALS: BP 109/65; PULSE 94; TEMP 98.4
--- NOTE | 2019-09-05 17:33 | NUR ---
PATIENT IS IN HER MOTORIZED WHEELCHAIR AT THIS TIME STRAPPED IN. MOTHER IS NOT PRESENT AT THIS TIME
--- NOTE | 2019-09-05 19:06 | NUR ---
Patient is sitting up in her wheelchair eating supper, is being fed by mother.
--- NOTE | 2019-09-05 20:15 | NUR ---
Patient sitting in chair. Assessment complete. Lungs clear. Heart sounds tachy at this time. Telemetry called stating patient pulse 120-130. patient appears aggitated-wanting to be assisted in to bed and recently received a duoneb treatment by respiratory. Will reassess pulse once in bed. Bowels active x4. Pulses strong throughout. No edema noted. PICC to right upper flushed and infusing without complications. Patient has abrasion to left shoulder. Bruising to right wrist and right upper arm. Mother denies needs at this time. Call light in reach. Will monitor.
--- NOTE | 2019-09-05 20:40 | NUR ---
Mother reports patient "feels warm." Patient sitting on toilet at this time. Temperature axillary 97.5. Patient body temperature has no change from previous assessment. Will monitor.
--- NOTE | 2019-09-05 21:30 | NUR ---
Pulse in 90s at this time. Resting in bed. Call light in reach.
[2019-09-05 23:02] VITALS: BP 103/56; PULSE 101; TEMP 98.2
[2019-09-06] VITALS (7 sets, daily range): BP systolic 95–127; BP diastolic 50–95; PULSE 71–103; TEMP 96–98.5
--- NOTE | 2019-09-06 00:08 | NUR ---
Resting in bed asleep with mother at bedside. Call light in reach.
--- NOTE | 2019-09-06 04:11 | NUR ---
Resting in bed. Repositioned with mother. Incontinent of urine. Cares provided. Call light in reach.
--- NOTE | 2019-09-06 06:21 | NUR ---
Patient had uneventful night. Resting in bed this AM. Call light in reach.
--- NOTE | 2019-09-06 07:28 | NUR ---
Report given to GURJIT Zamudio
[2019-09-06 12:52] LABS: CALCIUM 8.3 mg/dL (8.4-10.2); CREATININE, serum 0.73 (0.52-1.25); POTASSIUM 4.7 mmol/L (3.4-5.0)
[2019-09-06 14:12] LABS: HEMATOCRIT 29.2 % (37.0-47.0); HEMOGLOBIN 9.3 g/dl (12.5-16.0); MEAN CELL VOLUME 102 fl (80.0-100.0); MEAN CORPUSCULAR HEMOGLOBIN 33 pg (27.0-31.0); MEAN CORPUSCULAR HGB CONC 32 g/dl (33.0-37.0); MEAN PLATELET VOLUME 11.8 fl (7.4-10.4); PLATELET COUNT 54 K/mm3 (130-400); RED BLOOD COUNT 2.86 M/mm3 (4.10-5.30); REDCELL DISTRIBUTION WIDTH-CV 13.3 % (11.5-14.5)
[2019-09-06 14:21] LABS: BAND 1 % (0-10); EOSINOPHIL 1 % (0-4); LYMPHOCYTE 27 % (20.0-51.0); NEUTROPHILS 62 % (42.0-75.2); PLATELET ESTIMATE NORMAL (NORMAL)
--- NOTE | 2019-09-06 18:12 | NUR ---
Patient sitting up in her wheelchair, mother at the bedside. Alert, but unsure if oriented. Patient is unable to communicate. VSS. PICC JCARLOS CDI. Fluids infusing. Droplet precautions in place. No further needs expressed from patient. Call light within reach
--- NOTE | 2019-09-06 20:00 | NUR ---
Received report from GURJIT Zamudio. Assessment complete. Mom at bedside. Pt is alert. Sitting up strapped in wheelchair. Mom assist in communicating and care of pt. Meds administered. Per mom, pt has headache, PRN tylenol given. PICC to JCARLOS intact, flushed, dressing CDI. Mom noticed open sore/skin tear to perineal area most likely from repeated wiping from diarrhea. Barrier ointment given to mom and instructed to apply after each change. Mom accepting. Needs met. Call light within reach.
[2019-09-07 04:30] VITALS: BP 113/50; PULSE 73; TEMP 97.1
--- NOTE | 2019-09-07 05:29 | NUR ---
Pt slept during the night. Mom went home for a few hours and returned. Mom at bedside. No s/s of distress. Droplet precautions removed, pt completed 10doses of tamiflu. Needs met. Call light within reach.
--- NOTE | 2019-09-07 06:54 | NUR ---
Report given to GURJIT Zamudio.
[2019-09-07 08:00] VITALS: BP 147/88; PULSE 89; TEMP 97.1
--- NOTE | 2019-09-07 09:00 | NUR ---
Assessment complete. Patient alert, but unable to determine orientation due to patient being nonverbal. Mother at the bedside to assist with communication. VSS, BP hypertensive, mother thinks due to pain in neck that patient reports. Tylenol administered. PICC JCARLOS, old drainage, intact, fluids infusing. Patient sitting in wheelchair. No further needs expressed from patient. Call light within reach
[2019-09-07 10:50] LABS: MEAN CELL VOLUME 101 fl (80.0-100.0); MEAN CORPUSCULAR HGB CONC 32 g/dl (33.0-37.0); MEAN PLATELET VOLUME 12.2 fl (7.4-10.4); PLATELET COUNT 61 K/mm3 (130-400); RED BLOOD COUNT 3.05 M/mm3 (4.10-5.30); REDCELL DISTRIBUTION WIDTH-CV 13.2 % (11.5-14.5)
[2019-09-07 10:52] LABS: HEMATOCRIT 30.8 % (37.0-47.0); HEMOGLOBIN 9.8 g/dl (12.5-16.0); MEAN CORPUSCULAR HEMOGLOBIN 32 pg (27.0-31.0)
[2019-09-07 10:54] LABS: CALCIUM 8.6 mg/dL (8.4-10.2); CREATININE, serum 0.78 (0.52-1.25); POTASSIUM 4.8 mmol/L (3.4-5.0)
[2019-09-07 12:22] LABS: BAND 11 % (0-10); EOSINOPHIL 2 % (0-4); NEUTROPHILS 37 % (42.0-75.2); PLATELET ESTIMATE DECREASED (NORMAL)
[2019-09-07 12:23] LABS: LYMPHOCYTE 34 % (20.0-51.0)
[2019-09-07 13:24] VITALS: BP 94/50; PULSE 100; TEMP 98.9
--- NOTE | 2019-09-07 18:18 | NUR ---
Patient had an uneventful day. Mother has been at the bedside most of the shift. Patient alert. Patient was uncooperative with CXR. PICC JCARLOS CDI, fluids infusing. Patient has spent most of the shift in her wheelchair. Droplet precautions discontinued. No further needs expressed from patient. Call light within reach
[2019-09-07 19:43] VITALS: BP 107/52; PULSE 94; TEMP 98.2
--- NOTE | 2019-09-07 20:00 | NUR ---
Received report from GURJIT Zamudio. Assessment complete. Alert. Mother at bedside who assists with care of pt. Meds administered. No s/s of pain or distress. PICC to JCARLOS intact with fluids infusing. Needs attended too. Call light within reach.
[2019-09-08] VITALS: BP 107/69; PULSE 56; TEMP 98.4
[2019-09-08 04:00] VITALS: BP 106/49; PULSE 68; TEMP 98.4
--- NOTE | 2019-09-08 05:25 | NUR ---
Mom remained at pt bedside. No complaints made. Needs attended too. Call light within reach.
[2019-09-08 06:00] LABS: MEAN CELL VOLUME 103 fl (80.0-100.0); MEAN CORPUSCULAR HGB CONC 32 g/dl (33.0-37.0); MEAN PLATELET VOLUME 11.2 fl (7.4-10.4); PLATELET COUNT 72 K/mm3 (130-400); RED BLOOD COUNT 2.79 M/mm3 (4.10-5.30); REDCELL DISTRIBUTION WIDTH-CV 13.2 % (11.5-14.5)
[2019-09-08 06:09] LABS: HEMATOCRIT 28.6 % (37.0-47.0); MEAN CORPUSCULAR HEMOGLOBIN 32 pg (27.0-31.0)
[2019-09-08 06:11] LABS: CALCIUM 8.3 mg/dL (8.4-10.2); CREATININE, serum 0.69 (0.52-1.25); POTASSIUM 4.3 mmol/L (3.4-5.0)
[2019-09-08 06:29] LABS: BAND 4 % (0-10); LYMPHOCYTE 72 % (20.0-51.0); METAMYELOCYTE 3 % (0-0); NEUTROPHILS 9 % (42.0-75.2); PLATELET ESTIMATE DECREASED (NORMAL)
--- NOTE | 2019-09-08 07:24 | NUR ---
Report given to GURJIT Sinha.
--- NOTE | 2019-09-08 08:00 | NUR ---
Shift assessment complete at this time. Plan of care reviewed at bedside with family. Additional time taken to address any other needs or concerns. Vitals stable at this time. Pt displays not signs of pain or discomfort at this time. Bed in low position, call light within reach, will continue to monitor.
[2019-09-08 09:02] VITALS: BP 136/89; PULSE 78; TEMP 98
--- NOTE | 2019-09-08 12:00 | NUR ---
Pt leaving for MRI at this time. Vitals stable upon departure, FLACC score 0. Will continue to monitor.
--- NOTE | 2019-09-08 15:00 | NUR ---
PICC intact right large amount of dried reddish drainage present. with sterile technique right upper arm PICC dressing change done with insertion site cleansed with chloraprep x 1, chlorhexidine impregnagted disk applied, skin prep, stat lock, and tegaderm applied. no further drainage noted. no signs or symptoms of IV complications noted. no concerns voiced. wrapped with hermelinda to protect catheter.
[2019-09-08 15:29] VITALS: BP 110/78; PULSE 83; TEMP 97.2
--- NOTE | 2019-09-08 16:35 | NUR ---
JARRETT met with the patient, her mother, and an aide at [facility] to follow up after the weekend. The patient's mother reports that the patient is doing okay. They are waiting on the MRI results. The patient's mother reports that their are rumors that MRSA was going around at the [facility]. JARRETT notified the patient's PA-C, Marya. JARRETT contacted and faxed updates to Raina at [facility]. JARRETT to continue to follow.
--- NOTE | 2019-09-08 19:14 | NUR ---
Bedside report given to GURJIT Gaston.
[2019-09-08 19:42] VITALS: PULSE 102; TEMP 97.4
--- NOTE | 2019-09-08 20:22 | NUR ---
Assisted patient to restroom and to bed. Patient incontinent of diarrhea-colace held. Cares provided. Assessment complete. Lungs clear. Heart sounds normal-tachycardic. Bowels active x4. Pulses strong throughout. No edema noted. PICC to right upper arm flushed without complications. Bruising to right forearm and right upper arm present. Left shoulder abrasion. Reports headache with communication through mother. Provided with PRN tylenol at this time. Mother denies other needs. Call light with reach, bed alarm in place.
--- NOTE | 2019-09-08 23:21 | NUR ---
Incontinent of urine. Cares provided. Mother denies other needs. Call light in reach.
--- NOTE | 2019-09-09 01:29 | NUR ---
Resting in bed with mother at bedside. Call light in reach.
--- NOTE | 2019-09-09 03:16 | NUR ---
Resting in bed asleep. Call light in reach.
[2019-09-09 05:23] VITALS: PULSE 60; TEMP 97.3
--- NOTE | 2019-09-09 06:01 | NUR ---
Patient had uneventful night. Resting in bed this AM. Incontinent of urine. Cares provided. Call light in reach.
--- NOTE | 2019-09-09 07:28 | NUR ---
Report given to GURJIT Irving
[2019-09-09 08:58] LABS: MEAN CELL VOLUME 102 fl (80.0-100.0); MEAN CORPUSCULAR HGB CONC 31 g/dl (33.0-37.0); MEAN PLATELET VOLUME 11.8 fl (7.4-10.4); PLATELET COUNT 115 K/mm3 (130-400); RED BLOOD COUNT 2.96 M/mm3 (4.10-5.30); REDCELL DISTRIBUTION WIDTH-CV 13.2 % (11.5-14.5)
[2019-09-09 09:00] LABS: HEMATOCRIT 30.3 % (37.0-47.0); HEMOGLOBIN 9.5 g/dl (12.5-16.0); MEAN CORPUSCULAR HEMOGLOBIN 32 pg (27.0-31.0)
[2019-09-09 09:41] LABS: CALCIUM 8.4 mg/dL (8.4-10.2); CREATININE, serum 0.73 (0.52-1.25); POTASSIUM 4.6 mmol/L (3.4-5.0)
[2019-09-09 09:45] LABS: BAND 6 % (0-10); EOSINOPHIL 1 % (0-4); LYMPHOCYTE 65 % (20.0-51.0); NEUTROPHILS 20 % (42.0-75.2); PLATELET ESTIMATE DECREASED (NORMAL)
--- NOTE | 2019-09-09 12:02 | NUR ---
Pts mother, her halftone operator, communicated with her and she stated that her head was hurting, PRN tylenol was provided per request.
[2019-09-09 13:00] VITALS: PULSE 85; TEMP 96.9
[2019-09-09] MEDS ORDERED: DOXYCYCLINE HY100 MG PO (13:42)
[2019-09-09 17:00] VITALS: BP 113/94; PULSE 104; TEMP 97.5
--- NOTE | 2019-09-09 19:26 | NUR ---
Patient had an uneventful day. Mother assisted in medication administration. Discharge was a possibility but the mother was concerned about the loose stool. Dr. Arthur ordered a GI panel and a CDIFF. Notified nurse Marilin at shift change, stated she would notify Sandhya about the results. No further needs were expressed at this time. Call light is within reach.
--- NOTE | 2019-09-09 20:30 | NUR ---
Resting in bed. Assessment complete. Lungs clear. Heart sounds tachy- patient currently aggitated and spastic. Bowels active. Pulese strong throughout. No edema noted. Patient cool and clammy to touch. VS stable. Blood sugar stable. Will monitor. PICC to right upper arm flushed without complications. Mother denies other needs at this time. Call light in reach.
[2019-09-09 20:34] VITALS: PULSE 115; TEMP 96.8
--- NOTE | 2019-09-09 22:40 | NUR ---
Patient continues to be uncomfortable, aggitated and spastic. Mother request ativan. One time dose received for ativan 0.5mg IV now. Provided to patient. Denies other needs. Call light in reach.
--- NOTE | 2019-09-10 03:30 | NUR ---
Resting in bed asleep. Call light in reach.
[2019-09-10 03:50] VITALS: BP 116/79; PULSE 78; TEMP 97.2
--- NOTE | 2019-09-10 05:48 | NUR ---
Patient had x1 dose of ativan for aggitation. Resolved after ativan. Uneventful night. Resting in bed this AM with mother at bedside. Call light reach.
[2019-09-10 06:15] LABS: MEAN CELL VOLUME 101 fl (80.0-100.0); MEAN CORPUSCULAR HGB CONC 32 g/dl (33.0-37.0); MEAN PLATELET VOLUME 11.1 fl (7.4-10.4); PLATELET COUNT 142 K/mm3 (130-400); RED BLOOD COUNT 2.72 M/mm3 (4.10-5.30); REDCELL DISTRIBUTION WIDTH-CV 13.2 % (11.5-14.5)
[2019-09-10 06:18] LABS: HEMATOCRIT 27.4 % (37.0-47.0); HEMOGLOBIN 8.8 g/dl (12.5-16.0); MEAN CORPUSCULAR HEMOGLOBIN 32 pg (27.0-31.0)
[2019-09-10 06:31] LABS: ALBUMIN 2.6 gm/dL (3.5-5.0); BILIRUBIN,TOTAL 0.2 mg/dL (0.0-1.0); CALCIUM 8.2 mg/dL (8.4-10.2); CREATININE, serum 0.65 (0.52-1.25); POTASSIUM 4.1 mmol/L (3.4-5.0); TOTAL PROTEIN 5.3 gm/dL (6.4-8.2)
--- NOTE | 2019-09-10 07:24 | NUR ---
Report given to GURJIT Villalpando
[2019-09-10 08:09] LABS: BAND 10 % (0-10); EOSINOPHIL 1 % (0-4); LYMPHOCYTE 64 % (20.0-51.0); METAMYELOCYTE 1 % (0-0); MYELOCYTE 1 % (0-0); NEUTROPHILS 17 % (42.0-75.2); PLATELET ESTIMATE NORMAL (NORMAL)
--- NOTE | 2019-09-10 12:20 | NUR ---
PT'S MOM WANTING TO CARRY PT TO RESTROOM. ASKED IF WE COULD HAVE ANOTHER NURSE AND AID HELP TRANSPORT. PT IN RESTROOM AND HAD LOOSE STOOLS. MOM CLEANING UP PT IN BATHROOM. MOM REQUEST MEDICATION FOR PT D/T RESTLESS AND TREMORS. CALLED AND NOTIFIED. STATES HE WILL COME SEE PT AND ASSESS.
--- NOTE | 2019-09-10 13:37 | NUR ---
The patient is to discharge today, 09/10, back to [facility]. Transportation was scheduled for 1430, via [facility]. JARRETT informed the patient's mother and RN. They were both in agreeance to the time. SW also presented and explained the IM form to the patient's mother. The patient's mother verbalized understanding, signed, and she was provided a copy. No additional needs at this time.
--- NOTE | 2019-09-10 14:30 | NUR ---
1400: PICC LINE DC'D BY AHMET PICC RN. 1430: MOTHER REQUESTED COPIES OF DISCHARGE PAPERS. COPIES MADE AND GIVEN. AWAITING TRANSPORT FOR PT'S DISCHARGE.
--- NOTE | 2019-09-10 14:46 | NUR ---
Attempted to call Marla at Pt's longterm for update on pt prior to discharge but no answer. Will attempt again.
== END 2019-09-10 15:24 | DRG 872 ==
LOC: COL.ER 09:05 → ICU 17:22 → MEDICAL 09-02 20:17
PROVIDERS: Emergency Medicine; Hospitalist; Nurse Practitioner; Nurse Practitioner Family; Physician Assistant; Student in an Organized Health Care Education/Training Program; ADMIT Internal Medicine
PROC: 02HV33Z Insertion of Infusion Device into Superior Vena Cava, Percutaneous Approach (ICD-10-PCS; 2019-09-02)
PROC: 02PYX3Z Removal of Infusion Device from Great Vessel, External Approach (ICD-10-PCS; principal; 2019-09-10)
DX: A41.89 Other specified sepsis (principal); J10.1 Influenza due to other identified influenza virus with other respiratory manifestations; R65.20 Severe sepsis without septic shock; J45.909 Unspecified asthma, uncomplicated; G40.909 Epilepsy, unspecified, not intractable, without status epilepticus; E86.0 Dehydration; D69.6 Thrombocytopenia, unspecified; R79.89 Other specified abnormal findings of blood chemistry; D63.8 Anemia in other chronic diseases classified elsewhere; G80.9 Cerebral palsy, unspecified; K59.01 Slow transit constipation; R51 Headache; E87.6 Hypokalemia; R19.7 Diarrhea, unspecified
CPT/HCPCS: 99231-AI; 99232-AI; 99233-AI; A4216; A9585; C1751; J0696; J1650; J1720; J2060; J2405; J2543; J2704; J7030

== ENCOUNTER → 2020-01-21 | Outpatient (CLI) | payer MEDICAID ==
[~2020-01-21] MED LIST changes: +ALBUTEROL0.83 MG/ML IH; +DOXYCYCLINE HY100 MG PO; +MAXALT5 MG PO; +VALIUM 2MG T2 MG/TAB PO
== END ==
LOC: COL.RAD 10:02
DX: N17.9 Acute kidney failure, unspecified (principal)

== ENCOUNTER → 2020-05-07 | Emergency (ER) | payer MEDICAID | LOC: COL.ER 17:36 | DX: Z72.89 Other problems related to lifestyle (principal) ==

== ENCOUNTER → 2020-12-07 | Outpatient (CLI) | payer MEDICARE, MEDICAID ==
[~2020-12-07] MED LIST changes: +BACTRIM DS 8001 TAB PO; +CEPHALEXIN500 M1 PO; +ENULOSE10 GM/151 PO; +MOTRIN 600600 MG/TAB PO; +OMNICEF 300MG300 MG PO; +ZITHROMAX500 M2 PO
== END ==
LOC: COL.RAD 12-01 11:30
DX: G44.52 New daily persistent headache (NDPH) (principal)

== ENCOUNTER 2020-12-13 21:26 | Observation (INO) | payer MEDICARE, MEDICAID ==
[~2020-12-13] VITALS: Ht 157.5 cm; Wt 40.9 kg
[~2020-12-13 21:26] MED LIST changes: -BACTRIM DS 8001 TAB PO; -CEPHALEXIN500 M1 PO; -ENULOSE10 GM/151 PO; -MOTRIN 600600 MG/TAB PO; -OMNICEF 300MG300 MG PO; -ZITHROMAX500 M2 PO
[2020-12-13 22:10] LABS: COLLECTION METHOD CLEAN CATCH
[2020-12-13 22:15] LABS: BASO % 0.5 % (0.0-2.0); EOS # 0.2 (0.0-0.7); EOS % 2.9 % (0-4.0); GRAN % 68.4 % (42.2-75.2); HEMOGLOBIN 11.3 g/dl (12.5-16.0); LYMPH # 0.7 (1.2-3.4); LYMPH % 11.1 % (20.0-51.0); MEAN CELL VOLUME 100 fl (80.0-100.0); MEAN CORPUSCULAR HEMOGLOBIN 32 pg (27.0-31.0); MEAN CORPUSCULAR HGB CONC 32 g/dl (33.0-37.0); MEAN PLATELET VOLUME 10.8 fl (7.4-10.4); MONO % 16.4 % (1.7-9.3); PLATELET COUNT 152 K/mm3 (130-400); RED BLOOD COUNT 3.56 M/mm3 (4.10-5.30); REDCELL DISTRIBUTION WIDTH-CV 13.5 % (11.5-14.5)
[2020-12-13 22:16] LABS: HEMATOCRIT 35.7 % (37.0-47.0)
[2020-12-13 22:20] LABS: PH 7 (5-8); SQUAMOUS EPITHELIAL 0-2 /hpf; URINE APPEARANCE Clear; URINE BACTERIA None Seen /hpf; URINE BILIRUBIN Negative (NEGATIVE); URINE BLOOD Negative (NEGATIVE); URINE COLOR Yellow; URINE GLUCOSE Negative (NEGATIVE); URINE KETONE Negative (NEGATIVE); URINE LEUKOCYTE ESTERASE Negative (NEGATIVE); URINE NITRATE Negative (NEGATIVE); URINE PROTEIN(semi-quant) Negative (NEGATIVE)
[2020-12-13 22:28] LABS: ALANINE AMINOTRANSFERASE 25 U/L (4-34); ALBUMIN 3.9 gm/dL (3.5-5.0); ALKALINE PHOSPHATASE 130 U/L (50-136); ANION GAP 6 mmol/L (7-16); AST,SGOT 59 U/L (15-37); BILIRUBIN,TOTAL < 0.1 mg/dL (0.0-1.0); BLOOD UREA NITROGEN 37 mg/dL (7-17); CARBON DIOXIDE 32 mmol/L (22-30); CHLORIDE 102 mmol/L (98-107); CREATININE, serum 0.82 (0.52-1.25); GLUCOSE 78 mg/dL (74-106); LIPASE 217 U/L (23-300); POTASSIUM 4.7 mmol/L (3.4-5.0); SODIUM 140 mmol/L (137-145); TOTAL PROTEIN 7.6 gm/dL (6.4-8.2)
[2020-12-13 22:36] LABS: INR 1.2 (0.8-3.0); PROTHROMBIN TIME 13.2 SECONDS (9.7-12.8)
[2020-12-13 22:40] LABS: TROPONIN-I < 0.012 ng/mL (0.000-0.035)
[2020-12-13 22:44] LABS: PARTIAL THROMBOPLASTIN TIME 34.5 SECONDS (26.0-37.0)
[2020-12-13 22:51] LABS: D-DIMER < 200.00 ng/mLDDu (200-230)
--- NOTE | 2020-12-14 03:19 | NUR ---
Arrived to unit via stretcher, awake, alert, oriented to self, unable to obtain information from patient due to nonverbal nature, mother at bedside answering all medical information, respirations even & unlabored, skin warm and dry, no skin issues noted, VS stable, incontinent of bowel and bladder- wears diaper at home, pericare provided, repositioned to comfort and offloading pressure points, seizure pads added to bed due to spastic nature of extremity movements to minimize harm to self, fall precautions in place, call spence w/i reach, allowing mother to stay at bedside.
[2020-12-14 03:24] VITALS: BP 104/59; PULSE 86; TEMP 97.5
[2020-12-14 08:04] LABS: BASO % 0.7 % (0.0-2.0); EOS # 0.3 (0.0-0.7); GRAN # 1.9 (1.4-6.5); GRAN % 45.3 % (42.2-75.2); HEMOGLOBIN 10.2 g/dl (12.5-16.0); LYMPH # 1.3 (1.2-3.4); LYMPH % 31.1 % (20.0-51.0); MEAN CELL VOLUME 99 fl (80.0-100.0); MEAN CORPUSCULAR HEMOGLOBIN 32 pg (27.0-31.0); MEAN CORPUSCULAR HGB CONC 33 g/dl (33.0-37.0); MEAN PLATELET VOLUME 11.3 fl (7.4-10.4); MONO # 0.7 (0.1-0.6); MONO % 15.7 % (1.7-9.3); PLATELET COUNT 125 K/mm3 (130-400); RED BLOOD COUNT 3.16 M/mm3 (4.10-5.30); REDCELL DISTRIBUTION WIDTH-CV 13.7 % (11.5-14.5)
[2020-12-14 08:07] LABS: HEMATOCRIT 31.3 % (37.0-47.0)
[2020-12-14 08:14] LABS: CALCIUM 7.9 mg/dL (8.4-10.2); CREATININE, serum 0.61 (0.52-1.25)
[2020-12-14 09:09] VITALS: BP 97/56; PULSE 99; TEMP 97.7
[2020-12-14] MEDS ORDERED: ENULOSE10 GM/151 PO (10:48)
[2020-12-14 11:19] VITALS: BP 106/56; PULSE 100; TEMP 97.7
--- NOTE | 2020-12-14 11:54 | NUR ---
PT VERY SLEEPY THIS AM, LABS BEING DRAWN AND MEDICATIONS GIVEN WITH HELP OF MOTHER AT BEDSIDE. PT MORE AWAKE LATER THIS AM AND ATE WELL FOR BREAKFAST, HAD LARGE SOFT FORMED BOWEL MOVEMENT AND REPORTS FEELING BETTER AFTERWARDS. PT OKAY'D FOR DISCHARGE PER DR. LAZO.
[2020-12-14] MEDS ORDERED: ZITHROMAX500 M2 PO (11:58)
[2020-12-14] MEDS ORDERED: OMNICEF 300MG300 MG PO (11:58)
--- NOTE | 2020-12-14 14:45 | NUR ---
Anthropology And Archeology Instructor met with patient and patient's mother, Yareli (ph#[phone]) to discuss discharge planning. Patient has cerebral palsy and is mostly non verbal. Patient's mother, Yareil answered questions on patient's behalf. Patient lives in a snf managed by [facility]. Patient sees Dr. Hamm for primary care and has her medications administered to her by staff at her snf. Patient has a wheelchair and also uses a shower chair for bathing. Yareli reports that patient's snf has a zahra lift available if needed. Patient receives assistance with all ADLS from staff at her snf. Patient's mother, Yareli shared with JARRETT multiple concerns about patient's care are her snf. Yareli advised that patient continues to lose weight and that she is concerned patient is not being fed as she should. Yareli also advised that when she visits patient, she will have on dirty clothes and her face will be dirty. Yareli states the straps on patient's wheelchair are also consistently dirty. Yareli advised that she feels that when she visits, patient is usually thirsty or hungry. Yareli reports that patient has a case fitter, Daphne at [facility]. Patient will return to [facility] today with [facility] providing transportation. JARRETT contacted patient's case fitter and left a message. JARRETT also left a message for the [employer] hotline to report Yareli's concerns. JARRETT will continue to follow up. Discharge Plan: Return to [facility]
--- NOTE | 2020-12-14 15:12 | NUR ---
REPORT GIVEN TO [facility] CARE TRANSPORTATION PERSON, DISCHARGE PAPERWORK REVIEWED WITH MOTHER AT BEDSIDE AND PROVIDED FOR HALF-WAY REVIEW. MOTHER DENIED QUESTIONS WELL TRANSPORT HELPER FROM HALF-WAY.
--- NOTE | 2020-12-15 16:56 | NUR ---
Block Chopper Hand left another message for [facility] hotline.
--- NOTE | 2020-12-16 12:54 | NUR ---
Customer Facilities Supervisor made report to [facility].
== END 2020-12-14 14:30 | disposition home or self-care (01) ==
LOC: COL.ER 21:26 → MEDICAL 12-14 01:17
PROVIDERS: Emergency Medicine; Student in an Organized Health Care Education/Training Program; ADMIT Family Medicine
DX: J18.1 Lobar pneumonia, unspecified organism (principal); R65.10 Systemic inflammatory response syndrome (SIRS) of non-infectious origin without acute organ dysfunction; G40.909 Epilepsy, unspecified, not intractable, without status epilepticus; D64.9 Anemia, unspecified; J45.909 Unspecified asthma, uncomplicated; G80.9 Cerebral palsy, unspecified; K59.01 Slow transit constipation; M54.2 Cervicalgia; D69.6 Thrombocytopenia, unspecified; Z86.2 Personal history of diseases of the blood and blood-forming organs and certain disorders involving the immune mechanism; Z20.822 Contact with and (suspected) exposure to COVID-19; Z87.440 Personal history of urinary (tract) infections; Z90.89 Acquired absence of other organs; Z79.899 Other long term (current) drug therapy
CPT/HCPCS: A9284; G0378; J0456; J0696; J1650; J7030; J7050; Q9967

== ENCOUNTER 2021-02-16 11:56 | Emergency (ER) | payer MEDICARE, MEDICAID ==
[~2021-02-16] VITALS: Ht 157.5 cm; Wt 44.5 kg
[~2021-02-16 11:56] MED LIST changes: +ENULOSE10 GM/151 PO; +OMNICEF 300MG300 MG PO; +ZITHROMAX500 M2 PO
[2021-02-16 12:13] VITALS: TEMP 98.2
[2021-02-16 12:57] LABS: BASO % 0.6 % (0.0-2.0); EOS # 0.5 (0.0-0.7); EOS % 9.7 % (0-4.0); GRAN # 1.7 (1.4-6.5); GRAN % 33.5 % (42.2-75.2); HEMATOCRIT 38.5 % (37.0-47.0); HEMOGLOBIN 12.1 g/dl (12.5-16.0); LYMPH # 2.3 (1.2-3.4); LYMPH % 44.6 % (20.0-51.0); MEAN CELL VOLUME 100 fl (80.0-100.0); MEAN CORPUSCULAR HEMOGLOBIN 32 pg (27.0-31.0); MEAN CORPUSCULAR HGB CONC 31 g/dl (33.0-37.0); MEAN PLATELET VOLUME 10.8 fl (7.4-10.4); MONO # 0.6 (0.1-0.6); MONO % 11.2 % (1.7-9.3); PLATELET COUNT 138 K/mm3 (130-400); RED BLOOD COUNT 3.84 M/mm3 (4.10-5.30); REDCELL DISTRIBUTION WIDTH-CV 12.3 % (11.5-14.5)
[2021-02-16 13:13] LABS: ALANINE AMINOTRANSFERASE 21 U/L (4-34); ALBUMIN 3.7 gm/dL (3.5-5.0); ALKALINE PHOSPHATASE 107 U/L (50-136); ANION GAP 3 mmol/L (7-16); AST,SGOT 40 U/L (15-37); BILIRUBIN,TOTAL 0.1 mg/dL (0.0-1.0); BLOOD UREA NITROGEN 24 mg/dL (7-17); CALCIUM 9.6 mg/dL (8.4-10.2); CARBON DIOXIDE 33 mmol/L (22-30); CHLORIDE 103 mmol/L (98-107); CREATININE, serum 0.64 (0.52-1.25); GLUCOSE 90 mg/dL (74-106); LIPASE 175 U/L (23-300); SODIUM 140 mmol/L (137-145); TOTAL PROTEIN 7.1 gm/dL (6.4-8.2)
[2021-02-16 13:14] LABS: C-REACTIVE PROTEIN < 0.5 mg/dL (0.0-0.9)
[2021-02-16 13:33] LABS: TROPONIN-I < 0.012 ng/mL (0.000-0.035)
[2021-02-16] MEDS ORDERED: MOTRIN 600600 MG/TAB PO (14:20)
[2021-02-16] MEDS ORDERED: TYLENOL 500MG500 MG PO (14:20)
[2021-02-16 14:52] VITALS: BP 105/60; PULSE 88
== END 2021-02-16 14:52 | disposition home or self-care (01) ==
LOC: COL.ER 11:56
PROVIDERS: Nurse Practitioner Primary Care
DX: J06.9 Acute upper respiratory infection, unspecified (principal); G80.9 Cerebral palsy, unspecified; G40.909 Epilepsy, unspecified, not intractable, without status epilepticus; Z79.899 Other long term (current) drug therapy

== ENCOUNTER 2021-04-04 14:48 | Emergency (ER) | payer MEDICARE, MEDICAID ==
[~2021-04-04 14:48] MED LIST changes: +MOTRIN 600600 MG/TAB PO
[2021-04-04 15:42] VITALS: BP 103/58; TEMP 97.8
[2021-04-04 16:19] VITALS: PULSE 85
== END 2021-04-04 16:20 | disposition home or self-care (01) ==
LOC: COL.ER 14:48
DX: T43.591A Poisoning by other antipsychotics and neuroleptics, accidental (unintentional), initial encounter (principal); J06.9 Acute upper respiratory infection, unspecified

== ENCOUNTER 2021-05-25 14:34 | Emergency (ER) | payer MEDICARE, MEDICAID ==
[~2021-05-25] VITALS: Ht 149.9 cm; Wt 57.3 kg
[2021-05-25 15:10] VITALS: BP 114/82; PULSE 104
== END 2021-05-25 15:10 | disposition home or self-care (01) ==
LOC: COL.ER 14:34
DX: Z04.3 Encounter for examination and observation following other accident (principal); W05.0XXA Fall from non-moving wheelchair, initial encounter

== ENCOUNTER 2021-06-05 18:23 | Emergency (ER) | payer MEDICARE, MEDICAID ==
[~2021-06-05] VITALS: Ht 160 cm; Wt 47.7 kg
[2021-06-05 18:31] VITALS: TEMP 98.9
[2021-06-05 19:21] LABS: BASO % 0.4 % (0.0-2.0); EOS # 0.1 K/mm3 (0.0-0.7); EOS % 1.4 % (0-4.0); GRAN # 6.9 K/mm3 (1.4-6.5); GRAN % 69.7 % (42.2-75.2); HEMOGLOBIN 11.5 g/dl (12.5-16.0); LYMPH # 1.7 K/mm3 (1.2-3.4); LYMPH % 16.9 % (20.0-51.0); MEAN CELL VOLUME 99 fl (80.0-100.0); MEAN CORPUSCULAR HEMOGLOBIN 32 pg (27.0-31.0); MEAN CORPUSCULAR HGB CONC 32 g/dl (33.0-37.0); MEAN PLATELET VOLUME 11.1 fl (7.4-10.4); MONO # 1.1 K/mm3 (0.1-0.6); MONO % 11.3 % (1.7-9.3); PLATELET COUNT 171 K/mm3 (130-400); RED BLOOD COUNT 3.65 M/mm3 (4.10-5.30); REDCELL DISTRIBUTION WIDTH-CV 12.3 % (11.5-14.5)
[2021-06-05 19:22] LABS: HEMATOCRIT 36.1 % (37.0-47.0)
[2021-06-05 19:44] LABS: ALBUMIN 3.4 gm/dL (3.5-5.0); BILIRUBIN,TOTAL 0.2 mg/dL (0.2-1.2); CALCIUM 9.9 mg/dL (8.4-10.2); CREATININE, serum 0.79 mg/dL (0.57-1.11); POTASSIUM 4.3 mmol/L (3.5-4.5); TOTAL PROTEIN 7.5 gm/dL (6.2-8.1)
[2021-06-05] MEDS ORDERED: CEPHALEXIN500 M1 PO (22:22)
[2021-06-05] MEDS ORDERED: BACTRIM DS 8001 TAB PO (22:22)
[2021-06-05 22:36] VITALS: BP 106/70; PULSE 118
== END 2021-06-05 22:46 | disposition home or self-care (01) ==
LOC: COL.ER 18:23
PROVIDERS: Personal Emergency Response Attendant
DX: L03.116 Cellulitis of left lower limb (principal); L03.115 Cellulitis of right lower limb; G80.9 Cerebral palsy, unspecified; G40.909 Epilepsy, unspecified, not intractable, without status epilepticus; J45.909 Unspecified asthma, uncomplicated; Z79.899 Other long term (current) drug therapy
CPT/HCPCS: J0696; J7030

== ENCOUNTER 2022-09-19 11:03 | Outpatient (RCR) | payer MEDICARE, MEDICAID ==
[~2022-09-19 11:03] MED LIST changes: +BACTRIM DS 8001 TAB PO; +CEPHALEXIN500 M1 PO; +DEPAKOTE 125MG125 MG PO; +MUCUS RELIEF200 MG PO; +PREDNISONE20 MG PO; +VELTASSA8.4 GM PO
== END 2022-10-10 | disposition home or self-care (01) ==
LOC: WSST
DX: Z87.01 Personal history of pneumonia (recurrent) (principal)